=== PATIENT | female | born 1985 | race Caucasian/White ===

== ENCOUNTER 2022-05-11 08:05 | Outpatient (CLI) | payer BC, SELFPAY ==
[2022-05-11 12:40] LABS: Cholesterol* 199 mg/dL (90-199); HDL Cholesterol* 36 mg/dL (>=50); LDL Cholesterol Calculated 126 mg/dL (<100); Triglycerides* 187 mg/dL (40-149)
== END 2022-05-11 08:06 | disposition home or self-care (01) ==
LOC: LONREF 08:06
PROVIDERS: PCP Family Medicine; Visit Provider Family Medicine
DX: Z13.29 Encounter for screening for other suspected endocrine disorder (principal); Z13.6 Encounter for screening for cardiovascular disorders
CPT/HCPCS: 80061; 84443

== ENCOUNTER 2024-07-07 08:23 | Outpatient (CLI) | payer BC, SELFPAY ==
[2024-07-09 06:27] LABS: HPV Source Cervix; HPV, High Risk by TMA Not Detected
== END 2024-07-07 08:24 | disposition home or self-care (01) ==
PROVIDERS: PCP Registered Nurse; Visit Provider Physician Assistant
DX: Z12.4 Encounter for screening for malignant neoplasm of cervix (principal); Z11.51 Encounter for screening for human papillomavirus (HPV)
CPT/HCPCS: 87624; 87625; 88141; 88142

== ENCOUNTER 2024-12-09 13:34 | Outpatient (CLI) | payer BC, SELFPAY | END 2024-12-09 13:35 | disposition home or self-care (01) | PROVIDERS: PCP Family Medicine | DX: R06.02 Shortness of breath (principal) | CPT/HCPCS: 85379 ==

== ENCOUNTER 2025-01-19 07:55 | Outpatient (CLI) | payer BC, SELFPAY ==
--- NOTE | 2025-01-19 08:00 | CRLHL7_ITS ---
For Patients: As a result of the Century Cures Act, medical imaging exams and procedure reports are released immediately into your electronic medical record. You may view this report before your referring provider. If you have questions, please contact your health care provider. Indication: Chronic sinusitis Technique: Performed without IV contrast Comparison: None available Findings: Frontal sinuses: Clear. Ethmoid sinuses: Minimal mucosal thickening in the right ethmoid sinus. Mild mucus within the posterior left ethmoid sinus. Maxillary sinuses: Mild mucosal thickening bilaterally. Small mucous retention cyst on the left which measures 8 millimeters. The maxillary sinus drainage pathways are patent on both sides. Sphenoid sinuses: Clear, including both sphenoethmoidal recesses. Nasal Cavity: Slight leftward curvature of the nasal septum. Small hebert bullosa right middle turbinate. No TMJ abnormalities identified. The visualized portions of the orbits, intracranial contents and upper soft tissue neck are grossly negative. Impression: 1. Mild bilateral ethmoid and maxillary sinus disease. 2. No nasal polyps. Please note that all CT scans at this facility use dose modulation, iterative reconstruction, and/or weight-based dosing when appropriate to reduce radiation dose to as low as reasonably achievable. Dictated by Chad Shane MD @ 01/19/2025 8:51:02 AM (Electronically Signed)
== END 2025-01-19 07:56 | disposition home or self-care (01) ==
LOC: CT 07:57
PROVIDERS: PCP Family Medicine; Visit Provider Physician Assistant
DX: J32.9 Chronic sinusitis, unspecified (principal); J32.0 Chronic maxillary sinusitis; J32.2 Chronic ethmoidal sinusitis
CPT/HCPCS: 70486